=== PATIENT | female | born 1980 | race Caucasian/White ===

== ENCOUNTER 2017-02-26 00:54 | Emergency (ER) | payer BC ==
[~2017-02-26] VITALS: Ht 162.6 cm; Wt 54.0 kg
[2017-02-26 01:09] VITALS: TEMP 36.7; Ht 162.6 cm; Wt 54.0 kg
[2017-02-26] MEDS ORDERED: RMCI INJ (01:33)
[2017-02-26] MEDS ORDERED: AMOX500C3 PO (02:03)
[2017-02-26] MEDS ORDERED: AMOXICILLIN 250 MG CAP PO STA (02:04)
[2017-02-26 02:19] VITALS: BP 138/90; PULSE 88; O2SAT 98
--- NOTE | 2017-02-26 03:03 | EMERGENCY ROOM VISIT NOTE ---
History First contact with patient: 01:13 Chief Complaint: DENTAL PAIN Stated Complaint: DENTAL IMPLANT FELL OUT Nursing Triage Summary: dental implant placed 3 wks ago and the toi fell out tonight History of Present Illness The patient is a 36 year old female who presents to the Emergency Room with complaints of dental implant falling at 1 hour ago. Patient states 3 weeks ago she had a dental implant placed back in [place]. She is now here for grad school at [employer]. Patient brought the implant with her. She is not finished the dental procedure. Patient complains of mild discomfort to the area. Patient denies fever, facial swelling, trauma. Review of Systems See HPI for pertinent positives & negatives. A total of 6 systems reviewed and were otherwise negative. Past Medical/Surgical History Crohn's, dental surgery Social History Smoking Status: Never Smoker Smokeless Tobacco Use: No Drug Use: none Marital Status: Occupation Status: [employer] student Current/Historical Medications Scheduled Amoxicillin (Amoxil), 500 MG PO TID Infliximab (Remicade), 1 DOSE INJ every 8 weeks Physical Exam Vital Signs Date Time Temp Pulse Resp B/P (MAP) Pulse Ox O2 Delivery O2 Flow Rate FiO2 02/26/17 02:19 88 18 138/90 98 02/26/17 01:09 36.7 89 18 145/92 100 Room Air Pain Rating (0-10): 3.0 Physical Exam VITALS: Vitals are noted on the nurse's note and reviewed by myself. Vital signs stable. GENERAL: Pleasant female, in no acute distress, nondiaphoretic, well-developed well-nourished. SKIN: The skin was without rashes, erythema, edema, or bruising. There is no tenting of the skin. Capillary reflex less than 2 seconds. HEAD: Normocephalic atraumatic. EARS: External auditory canals clear EYES: Pupils equal round and reactive to light and accommodation. Conjunctivae without injection, sclerae without icterus. Extraocular movements intact. NOSE: Patent, turbinates without inflammation or discharge. No sinus tenderness. Dental exam: Left lower first molar with base of dental implant intact with no obvious signs of infection, overall dental hygiene good, no palpable abscess or signs of Burton angina MOUTH: Mucous membranes moist. Pharynx without erythema or exudate. Uvula midline. Airway patent. Tongue does not deviate. NECK: Supple without nuchal rigidity. No lymphadenopathy. No thyromegaly. No JVD. NEURO: Patient was alert and oriented to person place and time. Normal sensation to light and sharp touch. No focal neurological deficits. Medical Decision & Procedures Medications Administered Medications (Trade) Dose Ordered Sig/Perry Route Start Time Stop Time Status Last Admin Dose Admin Amoxicillin (Amoxil Cap) 500 mg NOW STAT PO 02/26/17 02:04 02/26/17 02:06 DC 02/26/17 02:10 500 MG ED Course Prior records reviewed and summarized as above. Triage Nursing notes reviewed. The patient's history was concerning for dental problem. Differential diagnosis: Etiologies such as cellulitis, abscess, failure dental implant, as well as others were entertained.. Physical examination: The physical examination was consistent with dental implant problem ER treatment provided: Amoxicillin On reassessment the patient felt better. Diagnostics interpreted by me: Deferred This appears to be isolated dental implant problem. Patient was advised to see oral surgery on Sunday morning and was given contact information for Dr. Lawler. Her dental implant was placed in a sterile cup and is advised to keep this in there. She is advised to keep the area dry and clean and to do warm salt water gargles and take antibiotics as directed. She is advised to frequently floss the area at to avoid any food getting stuck in her dental extraction site. She is advised to return to the ER immediately for fevers, pain, worsening signs or symptoms or as needed. By the evaluation outlined above emergent etiologies such as abscess, as well as others were deemed relatively unlikely. The pt informed about the findings as listed above. All questions were answered and pleased with the treatment. Return instructions were outlined and the patient was discharged in stable condition. Outpatient prescription management: amoxicillin Referral: The patient was referred dentist for follow-up in 2 to 3 days for a recheck of the current condition. Medical Decision As above Medication Reconcilliation Current Medication List: was personally reviewed by me Blood Pressure Screening Patient's blood pressure: Normal blood pressure Impression Primary Impression: Dental implant pain Departure Information Dispostion Home / Self-Care Condition GOOD Prescriptions Amoxicillin (AMOXIL) 500 Mg Cap 500 MG PO TID for 7 Days, #21 CAP Prov: Lupe Vazquez .NURIS 02/26/17 Referrals Stefano Lawler D.D.S. Forms HOME CARE DOCUMENTATION FORM, IMPORTANT VISIT INFORMATION Patient Instructions My [facility] Additional Instructions Amoxicillin 500mg: Take one pill 3 times daily for 7 days. All antibiotics can cause diarrhea. If this occurs and you feel worse or it does not resolve in 1-2 days follow up with your doctor or return to the Emergency Department as this could be signs of serious underlying problems. Any medication can cause an allergic reaction, stop the pills immediately and return to the ER for rash, hives, breathing difficulties, or swelling. Ibuprofen(Motrin, Advil) may be used for fever or pain. Use 600mg every six hours as needed. Take with food. Avoid using more than 2400mg in a 24 hour period. Do not use 2400mg per day for more than three consecutive days without physician direction. Prolonged inappropriate use can lead to stomach upset or ulcers. This medication can be taken if you need to drive, work, or perform activities which may be dangerous when taking narcotic pain medication. (AND/OR) Acetaminophen(Tylenol) may be used for fever or pain. Use 1000mg every six hours as needed. Avoid using more than 3000mg in a 24 hour period. This medication can be taken if you need to drive, work, or perform activities which may be dangerous when taking narcotic pain medication. Chambers teeth twice a day, floss daily and do warm saltwater gargles 3 times a day. Follow up on Sunday with oral surgery for definitive care for your dental problem. Call for an appointment. Return to ER sooner for facial swelling, fever, redness, worsening signs or symptoms or as needed. Problem Qualifiers Primary Impression: Dental implant pain Encounter type: initial encounter Qualified Codes: T85.848A - Pain due to other internal prosthetic devices, implants and grafts, initial encounter
== END 2017-02-26 02:15 | disposition home or self-care (01) ==
LOC: C.EDB 00:56 → C.EDC 02:15
DX: T85.848A Pain due to other internal prosthetic devices, implants and grafts, initial encounter (principal); Y83.1 Surgical operation with implant of artificial internal device as the cause of abnormal reaction of the patient, or of later complication, without mention of misadventure at the time of the procedure; K50.90 Crohn's disease, unspecified, without complications; Z98.818 Other dental procedure status; Z79.899 Other long term (current) drug therapy